=== PATIENT | female | born 1965 | race Caucasian/White ===

== ENCOUNTER → 2022-05-02 | Outpatient (CLI) | payer OTHER | LOC: CARD 11:12 | PROVIDERS: ATTEND Physician Assistant | DX: I34.0 Nonrheumatic mitral (valve) insufficiency (principal); J44.9 Chronic obstructive pulmonary disease, unspecified; R07.89 Other chest pain; R00.2 Palpitations | CPT/HCPCS: 93225; 93226; C8929; 93306 ==